=== PATIENT | male | born 1990 | race Caucasian/White ===

== ENCOUNTER 2023-06-04 11:43 | Emergency (ER) | payer MEDICAID, SELFPAY ==
--- NOTE | ~2023-06-04 | XR_ITS ---
EXAMINATION: XR chest 2V DATE: 06/04/2023 15:04 INDICATION: Cough. TECHNIQUE: Frontal and lateral views of the chest were obtained. COMPARISON: None. FINDINGS: There is no pneumonia, pleural effusion, or pneumothorax. The heart size is normal. There i s an old healed fracture of left clavicle. IMPRESSION: 1. No acute cardiopulmonary disease. Reviewed, dictated and finalized at location E. [employer]ICIAN
[2023-06-04 11:49] VITALS: BP 162/93; PULSE 95; RESP 18; TEMP 37.1; O2SAT 97
--- NOTE | 2023-06-04 15:12 | ED.GIBLEED ---
HPI - GI Bleed General Chief complaint: GI Bleed Stated complaint: vomiting some blood Time Seen by Provider: 06/04/23 14:40 Source: patient Mode of arrival: ambulatory Limitations: no limitations History of Present Illness HPI Narrative: 33-year-old male presents today with complaints of possible GI bleed. Per patient he vomited today and noticed blood in it. patient states he was working with his worse today when he started coughing then watering at the mouth and he was going to vomit. Patient continued to cough went to the side and did vomit and noticed some blood tinged streaks. Patient states he was coughing right prior to vomiting. Denies any chest pain, shortness of breath, dizziness, runny nose, cold symptoms, heartburn, recent sick contacts, diarrhea, black stools, or having previous symptoms like this. 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 States he has been working there for the last 3 days. Patient states he had lab work done in February. 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 Facial lesion noted to the left cheek. Per patient it is skin cancer has not had it treated cannot afford it. MD complaint: blood streaked emesis Related Data Allergies Allergy/AdvReac Type Severity Reaction Status Date / Time No Known Allergies Allergy Verified 06/04/23 11:51 Review of Systems Review of Systems: All systems reviewed & are unremarkable except as noted in HPI and below PMFSH Past Medical History Medical History Skin cancer Exam Const: General: cooperative, healthy appearing, comfortable, no acute distress and well developed Orientation/consciousness: patient oriented x3 HENMT: Head: normal to inspection Eyes: General: appearance normal, both eyes and all related structures Resp: Effort & Inspection: normal respiratory effort and able to speak in complete sentences Auscultation: clear to auscultation bilaterally Cardio: Rate: regular rate Rhythm: regular rhythm Heart sounds: S1 normal heart sound present and S2 normal heart sound present GI: Inspection: non-distended GI Palp: Yes Soft to palpation Auscultation: normal bowel sounds Neuro: General: patient oriented x3 Course Vital Signs Vital signs: Vital Signs Temperature 98.8 F 06/04/23 11:49 Pulse Rate 95 06/04/23 11:49 Respiratory Rate 18 06/04/23 11:49 Blood Pressure 162/93 H 06/04/23 11:49 Pulse Oximetry 97 06/04/23 11:49 Oxygen Delivery Room Air 06/04/23 11:49 Temperature 98.8 F 06/04/23 11:49 Pulse Rate 95 06/04/23 11:49 Respiratory Rate 18 06/04/23 11:49 Blood Pressure 162/93 H 06/04/23 11:49 Pulse Oximetry 97 06/04/23 11:49 Oxygen Delivery Room Air 06/04/23 11:49 MDM - GI Bleed MDM Narrative Medical decision making narrative: 33-year-old male HPI noted differentials of below. Workup to include CBC, CMP, type and cross, orthostatic blood pressures, chest x-ray, PTT, PT INR. Chest x-ray included after her assessment and patient states that he was coughing today prior to vomiting clear fluid with blood tinged streaks noted in it. Suspect possible URI or blood coming from the sinuses. Low suspicion for actual GI bleed but workup to rule out any acute issues. Patient without repeat episode of bloody emesis. Hemoglobin normal at 16.2. White count slightly elevated 11. CMP without concerning findings. Chest x-ray with no acute process seen. Suspect blood came from the upper respiratory tract. Will send patient home with PPI and plan follow-up with primary care provider and GI consult if needed. Differential Diagnosis Differential diagnosis: Likely esophageal varices, gastritis, Hortensia-Fajardo syndrome, Upper gastrointestinal hemorrhage and other (URI, blood streak sputum) Medical Records Attestation: I reviewed the patient's medical records. Lab Data Attestation: I review
[2023-06-04 15:18] LABS: Basophils Absolute Auto 0.1 K/mm3 (0.0-0.1); Basophils Percent Auto 0.6 % (0.2-1.2); Eosinophils Absolute Auto 0.1 K/mm3 (0-0.3); Eosinophils Percent Auto 0.7 % (0-4.4); Hematocrit 49.4 % (42.0-52.0); Hemoglobin 16.2 g/dL (14.0-18.0); Immature Granulocyte Absolute 0.03 K/mm3 (0.00-0.031); Immature Granulocyte Percent A 0.3 % (0-0.5); Lymphocytes Absolute Auto 2.34 K/mm3 (0.9-3.2); Lymphocytes Percent Auto 21.3 % (18.3-44.2); Mean Corpuscular HGB Conc 32.8 g/dl (32-36); Mean Corpuscular Hemoglobin 30.3 pg (26-34); Mean Corpuscular Volume 92.3 fl (80-100); Mean Platelet Volume 9.8 fl (7.4-10.4); Monocytes Absolute Auto 0.6 K/mm3 (0.1-0.6); Monocytes Percent Auto 5.7 % (2.6-8.5); Neutrophils Absolute Auto 7.8 K/mm3 (1.3-6.7); Neutrophils Percent Auto 71.4 % (45.5-73.1); Platelet Count Result 209 k/mm3 (150-375); Red Blood Count 5.35 M/mm3 (4.6-6.20); Red Cell Distribution Width 12.7 % (11.5-14.5)
[2023-06-04 15:27] LABS: Prothrombin Time 13.7 Seconds (11.1-14.7)
[2023-06-04 15:28] LABS: Alanine Aminotransferase 35 U/L (6-50); Albumin Level 4.7 g/dL (3.5-5.1); Alkaline Phosphatase 45 U/L (38-126); Anion Gap 8 mmol/L (8-16); Aspartate Amino Transferase 26 U/L (17-59); Bilirubin,Total 0.7 mg/dL (0.2-1.3); Blood Urea Nitrogen 13 mg/dL (9-20); Calcium 9.5 mg/dL (8.4-10.2); Carbon Dioxide 26 mmol/L (22-30); Chloride 106 mmol/L (98-107); Estimated CRCL calculation 114 ml/min; Estimated Glomerular Filt Rate > 60; Glucose 90 mg/dL (65-110); Partial Thromboplastin Time 29.6 SECONDS (22.3-36.8); Potassium 3.8 mmol/L (3.4-5.0); Sodium 140 mmol/L (137-145)
[2023-06-04] MEDS: LACTATED RINGERS 1,000 ML 999 ML IV CONT (15:51)
[2023-06-04] MEDS: PANTOPRAZOLE SODIUM IV 40 MG VIAL IV PUSH (15:51)
== END 2023-06-04 16:52 | disposition home or self-care (01) ==
PROVIDERS: Emergency Medicine; Emergency Provider Nurse Practitioner Family
DX: K92.0 Hematemesis (principal); R04.2 Hemoptysis; C44.90 Unspecified malignant neoplasm of skin, unspecified
CPT/HCPCS: 36415; 71046; 80053; 85025; 85610; 85730; 86850; 86900; 86901; 96361; 96374; 99284; C9113; J7120